=== PATIENT | male | born 1985 ===

== ENCOUNTER 2019-12-22 17:15 | Emergency (ER) | payer SELFPAY ==
[2019-12-22] MEDS ORDERED: HYDROcodone/ACETAMINOPHEN 5-325 MG TAB PO ONE (18:20)
[2019-12-22] MEDS ORDERED: IBUPROFEN 800 MG TAB PO ONE (18:20)
[2019-12-22] MEDS ORDERED: TETANUS,DIPHTHERIA TOXOID ADULT 0.5 ML INJ IM ONE (19:17)
--- NOTE | 2019-12-22 19:19 | Emergency Department Report ---
- General Chief Complaint: Laceration/Recheck/Suture Stated Complaint: RIGHT ARM INJURY Time Seen by Provider: 12/22/19 17:46 Source: patient Mode of arrival: Ambulatory Limitations: No Limitations - History of Present Illness Initial Comments: Patient is a 34-year-old male who was using a wood saw and the sauce slipped and cut his left medial bicep region. Patient had the wound wrapped and he was brought to the emergency department. States that the pain is a 6 out of 10 in severity. Is worse with movement better with rest. His last tetanus shot is unknown. - Related Data Allergies Allergy/AdvReac Type Severity Reaction Status Date / Time No Known Allergies Allergy Verified 12/22/19 17:26 ED Review of Systems ROS: Stated complaint: RIGHT ARM INJURY Other details as noted in HPI Comment: All other systems reviewed and negative ED Past Medical Hx - Past Medical History Previous Medical History?: No - Surgical History Past Surgical History?: No - Social History Smoking Status: Never Smoker ED Physical Exam - General Limitations: No Limitations General appearance: alert, in no apparent distress - Head Head exam: Present: atraumatic, normocephalic - Eye Eye exam: Present: normal appearance, PERRL, EOMI - ENT ENT exam: Present: mucous membranes moist - Neck Neck exam: Present: normal inspection - Respiratory Respiratory exam: Present: normal lung sounds bilaterally. Absent: respiratory distress, wheezes, rales, rhonchi - Cardiovascular Cardiovascular Exam: Present: regular rate, normal rhythm. Absent: systolic murmur, diastolic murmur, rubs, gallop - GI/Abdominal GI/Abdominal exam: Present: soft, normal bowel sounds - Rectal Rectal exam: Present: deferred - Extremities Exam Extremities exam: Present: normal inspection - Back Exam Back exam: Present: normal inspection - Neurological Exam Neurological exam: Present: alert, oriented X3 - Psychiatric Psychiatric exam: Present: normal affect, normal mood - Skin Skin exam: Present: warm, dry, intact, normal color. Absent: rash - Expanded Skin Exam Expanded 1 - Patient with 11 cm wide irregular shaped laceration does not appear to be any penetration into the muscle. ED Course Vital Signs 12/22/19 17:27 Temperature 99.1 F Pulse Rate 92 H Respiratory 16 Rate Blood Pressure 121/57 [Left] O2 Sat by Pulse 95 Oximetry - Laceration /Wound Repair Right Medial Arm Wound Location: upper extremity Wound Length (cm): 11 Wound's Depth, Shape: irregular Irrigated w/ Saline (ccs): 200 Betadine Prep?: Yes Anesthesia: Lidocaine w/ Epi Wound Debrided: minimal (Several areas of skin tear were removed to make a sharp edge) Wound Repaired With: sutures Suture Size/Type: 4:0 Number of Sutures: 17 Layer Closure?: No Sterile Dressing Applied?: Yes Critical care attestation.: If time is entered above; I have spent that time in minutes in the direct care of this critically ill patient, excluding procedure time. ED Disposition Clinical Impression: Laceration Disposition: DC-01 TO HOME OR SELFCARE Is pt being admited?: No Does the pt Need Aspirin: No Condition: Stable Instructions: Laceration (ED), Suture Care (ED) Referrals: PRIMARY CARE [Primary Care Provider] - 7-10 days (for suture removal ) Time of Disposition: 19:21 Print Language: [place]
[2019-12-22 23:32] VITALS: BP 116/74
== END 2019-12-22 20:02 | disposition home or self-care (01) ==
LOC: ED 17:15
DX: S41.111A Laceration without foreign body of right upper arm, initial encounter (principal); W45.8XXA Other foreign body or object entering through skin, initial encounter; Y93.89 Activity, other specified; Y92.89 Other specified places as the place of occurrence of the external cause; Y99.8 Other external cause status
CPT/HCPCS: 90714; 99282

== ENCOUNTER 2020-01-01 14:55 | Emergency (ER) | payer SELFPAY ==
[2020-01-01 15:24] VITALS: BP 103/64
--- NOTE | 2020-01-01 15:28 | Emergency Department Report ---
Suture/Staple Removal - [facility] Chief Complaint: Laceration/Recheck/Suture Stated Complaint: SUTURE REMOVAL Time Seen by Provider: 01/01/20 15:24 When Sutures or [place] Placed: 8-10 Days Ago Wound Location: right elbow area ED Review of Systems ROS: Stated complaint: SUTURE REMOVAL Other details as noted in HPI Constitutional: denies: chills, fever Eyes: denies: eye pain, eye discharge, vision change ENT: denies: ear pain, throat pain Respiratory: denies: cough, shortness of breath, wheezing Cardiovascular: denies: chest pain, palpitations Endocrine: no symptoms reported Gastrointestinal: denies: abdominal pain, nausea, diarrhea Genitourinary: denies: urgency, dysuria Musculoskeletal: denies: back pain, joint swelling, arthralgia Skin: denies: rash, lesions Neurological: denies: headache, weakness, paresthesias Psychiatric: denies: anxiety, depression Hematological/Lymphatic: denies: easy bleeding, easy bruising ED Past Medical Hx - Past Medical History Previous Medical History?: No - Surgical History Past Surgical History?: No - Social History Smoking Status: Never Smoker - Medications Home Medications: Home Medications Medication Instructions Recorded Confirmed Last Taken Type Ketorolac [Toradol] 10 mg PO Q6H PRN #12 tablet 12/22/19 Unknown Rx traMADoL [Ultram] 50 mg PO Q6HR PRN #10 tablet 12/22/19 Unknown Rx Suture Removal Exam - Exam General: Vital signs noted. No distress. Alert and acting appropriately. Wound: No Pathologic Erythema, No Tenderness, No Drainage, No Pus, No Wound Dehiscence Other Systems: All other systems reviewed and are unremarkable. ED Course Vital Signs 01/01/20 15:23 Temperature 98.3 F Pulse Rate 75 Respiratory 16 Rate Blood Pressure 103/64 [Right] O2 Sat by Pulse 96 Oximetry - Reevaluation(s) Reevaluation #1: 01/01/20 15:27 Patient is speaking in full sentences with no signs of distress noted. ED Recheck MDM - Medical Decision Making Total of 17 sutures removed. Well healing. no cellulitis or swelling. Patient was instructed to Follow-up with a primary care doctor in 3-5 days or if symptoms worsen and continue return to emergency room as soon as possible. At time of discharge, the patient does not seem toxic or ill in appearance. No acute signs of distress noted. Patient agrees to discharge treatment plan of care. No further questions noted by the patient. Critical care attestation.: If time is entered above; I have spent that time in minutes in the direct care of this critically ill patient, excluding procedure time. ED Disposition Clinical Impression: Visit for suture removal Disposition: TO HOME OR SELFCARE Is pt being admited?: No Does the pt Need Aspirin: No Condition: Stable Instructions: Suture Removal (ED) Additional Instructions: Follow-up with a primary care doctor in 3-5 days or if symptoms worsen and continue return to emergency room as soon as possible. Referrals: PRIMARY MD LINA [Referring] - 3-5 Days CARLOS RAMON MD [Staff Physician] - 3-5 Days
== END 2020-01-01 16:30 | disposition home or self-care (01) ==
LOC: ED 14:55
DX: S41.111D Laceration without foreign body of right upper arm, subsequent encounter (principal); Z79.899 Other long term (current) drug therapy; X58.XXXD Exposure to other specified factors, subsequent encounter

== ENCOUNTER 2020-02-11 20:48 | Emergency (ER) | payer SELFPAY ==
[2020-02-11] MEDS ORDERED: SODIUM CHLORIDE IRRI 500 ML 1,000 ML IR ONE (21:02)
[2020-02-11] MEDS ORDERED: LIDOCAINE 1%/EPINEPHRINE 1:100,000 VIAL (20 ML) INFILTRATI ONE ×2 (21:38→21:42)
--- NOTE | 2020-02-11 21:54 | Emergency Department Report ---
- General Chief Complaint: Laceration/Recheck/Suture Stated Complaint: LEFT FOOT INJURY Time Seen by Provider: 02/11/20 21:10 Source: patient Mode of arrival: Ambulatory Limitations: Language Barrier - History of Present Illness Initial Comments: 34-year-old male with no known past medical history presents to the hospital with accidental self-inflicted injury to the left lateral ankle. Patient cut his left foot with an electric saw 3 hours prior to arrival. He complains of mild pain at this time. He doused the wound and cleaning solution as well as a powder to stop the bleeding. Patient continues to have mild oozing from the wound. He is able to bear weight and has full range of motion. Last tetanus shot unknown - Related Data Previous Rx's Medication Instructions Recorded Last Taken Type Ketorolac [Toradol] 10 mg PO Q6H PRN #12 tablet 12/22/19 Unknown Rx traMADoL [Ultram] 50 mg PO Q6HR PRN #10 tablet 12/22/19 Unknown Rx cephALEXin [Keflex] 500 mg PO Q6HR #28 capsule 02/11/20 Unknown Rx Allergies Allergy/AdvReac Type Severity Reaction Status Date / Time No Known Allergies Allergy Verified 12/22/19 17:26 ED Review of Systems ROS: Stated complaint: LEFT FOOT INJURY Other details as noted in HPI Comment: All other systems reviewed and negative ED Past Medical Hx - Past Medical History Previous Medical History?: No - Surgical History Past Surgical History?: No - Social History Smoking Status: Never Smoker - Medications Home Medications: Home Medications Medication Instructions Recorded Confirmed Last Taken Type Ketorolac [Toradol] 10 mg PO Q6H PRN #12 tablet 12/22/19 Unknown Rx traMADoL [Ultram] 50 mg PO Q6HR PRN #10 tablet 12/22/19 Unknown Rx cephALEXin [Keflex] 500 mg PO Q6HR #28 capsule 02/11/20 Unknown Rx ED Physical Exam - General Limitations: Language Barrier - Other Other exam information: General: No acute distress Head: Atraumatic Eyes: normal appearance ENT: Moist mucous membranes Neck: Normal appearance, no midline tenderness Chest: Clear to auscultation bilaterally CV: Regular rate and rhythm Abdomen: Soft, normal bowel sounds, nontender, nondistended, no rebound or guarding Back: Normal inspection Extremity: Normal inspection, full range of motion of ankle and toes, cap refill less than 2 seconds, distal sensation intact to touch, 2+ DP pulse. Left lateral ankle laceration just medial to the lateral malleolus that is 3-1/2 cm in length with mild oozing of blood. Neuro: Alert O x 3, no facial asymmetry, speech clear, no gross motor sensory deficit Psych: Appropriate behavior Skin: No rash - Laceration /Wound Repair Left Ankle Wound Location: lower extremity Wound's Depth, Shape: linear Wound Explored: contaminated (with blue powder) Irrigated w/ Saline (ccs): 500 Betadine Prep?: Yes Anesthesia: Lidocaine w/ Epi Wound Debrided: none Wound Repaired With: sutures Suture Size/Type: 4:0, nylon Number of Sutures: 7 Layer Closure?: No Sterile Dressing Applied?: Yes ED Medical Decision Making - Radiology Data Radiology results: report reviewed LEFT ANKLE 3 VIEWS INDICATION / CLINICAL INFORMATION: ankle laceration. COMPARISON: None available. FINDINGS: Bandage overlies the lateral soft tissues. No fracture or other acute skeletal abnormality. No radiopaque foreign bodies. - Medical Decision Making Patient presents to the hospital left lateral laceration from an electric saw. Wound irrigated and prepped with Betadine and repaired without incident. Positive hemostasis achieved. Patient has full range of motion and has minimal pain during examination. X-ray does not reveal foreign body. Patient will be discharged on empiric Keflex with suture removal in 7 to 10 days. Critical Care Time: No Critical care attestation.: If time is entered above; I have spent that time in minutes in the direct care of this critically ill patient, excluding procedure time. ED Disposition Clinical Impression: Laceration of ankle Disposition: DC-01 TO HOME OR SELFCARE Is pt being admited?: No Does the pt Need Aspirin: No Condition: Stable Instructions: Suture Care (ED) Additional Instructions: Take the medication as prescribed. Follow-up with your doctor or doctor/clinic provided. Return if symptoms worsen as indicated by your discharge instructions. Your stitches should be removed in in 10 days. You may return to the ER or follow-up with the doctor/clinic of your choice Mulino el medicamento segn lo prescrito. Seguimiento con cramer mdico o mdico/clnica proporcionado. Regrese si los sntomas empeoran segn lo indicado por las instrucciones de klaudia. Makenna puntos deben retirarse en 10 benítez. Usted puede regresar a urgencias o hacer un seguimiento con el griselda/tushar de cramer eleccin Prescriptions: cephALEXin [Keflex] 500 mg PO Q6HR #28 capsule Referrals: [facility] [Provider Group] - 7-10 days CARLOS RAMON MD [Staff Physician] - 7-10 days Time of Disposition: 22:36 Print Language: SWEDISH
[2020-02-11] MEDS ORDERED: DIPHtheria,PERTUSSIS(ACELL),TETANUS VACCINE/PF 0.5 ML VIAL IM ONE (21:55)
--- NOTE | 2020-02-11 22:03 | XRay Report ---
LEFT ANKLE 3 VIEWS INDICATION / CLINICAL INFORMATION: ankle laceration. COMPARISON: None available. FINDINGS: Bandage overlies the lateral soft tissues. No fracture or other acute skeletal abnormality. No radiop aque foreign bodies. Signer Name: Leoncio Starr MD Signed: 02/11/2020 9:58 PM Workstation Name: [id number]
[2020-02-11 22:30] VITALS: BP 121/69
[2020-02-11] MEDS ORDERED: NEOMY 3.5 MG/BACIT 400 UNITS/POLY B 5000 UNITS/GM OINT PACKET TP ONE (22:30)
[2020-02-11] MEDS ORDERED: SODIUM CHLORIDE 0.9% IRR 500 ML BOTTLE IR ONE (22:33)
== END 2020-02-11 23:06 | disposition home or self-care (01) ==
LOC: ED 20:48
DX: S91.012A Laceration without foreign body, left ankle, initial encounter (principal); Z79.899 Other long term (current) drug therapy; W31.89XA Contact with other specified machinery, initial encounter; Y93.89 Activity, other specified; Y92.89 Other specified places as the place of occurrence of the external cause; Y99.8 Other external cause status
CPT/HCPCS: 12002; 73610; 90471; 90715; 99283; A6250